=== PATIENT | male | born 1985 | race Caucasian/White ===

== ENCOUNTER → 2018-02-04 | Outpatient (CLI) | payer OTHER ==
[~2018-02-04] MED LIST: AUGMENTIN 875-1 EACH PO; MAGOX 400400 MG PO; MULTI MINERAL PO; MULTIVITAMINS1 EAC7 PO; OMEGA-31000 M1 PO; PERCOCET 7.5-31 EACH PO; PROBIOTIC1 EAC1 PO; VITAMIN D1000 UNI2 PO
== END ==
LOC: MRI 09:23
DX: M25.474 Effusion, right foot (principal)

== ENCOUNTER 2018-02-06 05:24 | Day surgery (SDC) | payer OTHER ==
[~2018-02-06] VITALS: Ht 182.9 cm; Wt 102.1 kg
--- NOTE | ~2018-02-06 | O ---
[facility] [place] [address] OPERATIVE REPORT Name: TEENA DÍAZ Room #: 150-1 [facility]..#: [id number] Admission: 02/06/18 Attend Phys: Phillip Laughlin MD Discharge: Date of : 83 Report #: [id number] THIS REPORT FOR: //name// CC: [facility] physician/PCP Phillip Laughlin DATE OF SERVICE: 02/06/2018 PREOPERATIVE DIAGNOSIS: Right third metatarsophalangeal joint septic arthritis. POSTOPERATIVE DIAGNOSIS: Right third metatarsophalangeal joint septic arthritis. PROCEDURE: Right foot third MTP joint, irrigation and debridement. SURGEON: Phillip Laughlin M.D. ANESTHESIA: Local with MAC. ESTIMATED BLOOD LOSS: Minimal. DRAINS: There was a drain. TOURNIQUET TIME: 15 minutes. DESCRIPTION OF PROCEDURE: The patient was brought to the operating room where he was placed under MAC anesthesia. Once under MAC anesthesia, his right lower extremity was prepped and draped in a sterile manner. The right lower extremity was elevated and tourniquet placed to 250 mmHg. A dorsal incision over the third MTP joint was then made, dissected down through soft tissue and joint capsule, which was then incised. Abundant purulence did emanate from the joint at that time, cultures were taken. The wound was then irrigated copiously with normal saline solution. A small Hemovac-type drain was then placed. The wound was irrigated once again copiously and closed with 3-0 nylon for the skin. The wound was dressed with Xeroform, 4 x 4s, and sterile soft compressive dressing was placed. Tourniquet was let down at 15 minutes. Toes were pink and warm with good capillary refill. There were no complications from the procedure. The patient tolerated the procedure well and sent to recovery room without incident. By: [id number] [id number] Phillip Laughlin MD /nt
[~2018-02-06 05:24] MED LIST changes: -PERCOCET 7.5-31 EACH PO
[2018-02-06 15:11] VITALS: BP 143/75
[2018-02-06] MEDS ORDERED: PERCOCET 7.5-31 EACH PO (16:05)
[2018-02-06 16:29] VITALS: BP 143/75
== END 2018-02-06 16:00 | disposition home or self-care (01) ==
LOC: OR 05:24 → TBA 05:24 → OR 07:34
DX: M00.9 Pyogenic arthritis, unspecified (principal); Z98.890 Other specified postprocedural states; Z79.891 Long term (current) use of opiate analgesic; Z79.899 Other long term (current) drug therapy
CPT/HCPCS: 50010; 50101; 50386; 50825; 57091; 62110; 62850; 70005